=== PATIENT | female | born 1945 | race African-American/Black ===

== ENCOUNTER 2017-03-30 04:21 | Emergency (ER) | payer MEDICARE, MEDICAID ==
[~2017-03-30] VITALS: Ht 157.5 cm; Wt 106.0 kg
[~2017-03-30 04:21] MED LIST: AMLO10TA4 PO; CETI10TA6 PO; DETLA2 PO; DIAZ5TAB PO; FLONASE; GABA-290 PO; HYDR-519 PO; HYDR25TA PO; NAPR-1176 PO; OMEP20CA10 PO; VALS320T2 PO; [UNRECOGNIZED DRUG - OTHER] PO
[2017-03-30] MEDS ORDERED: KETOROLAC 60MG/2ML VIAL IM ONE (07:30)
[2017-03-30 09:50] VITALS: BP 120/75
== END 2017-03-30 09:58 | disposition home or self-care (01) ==
LOC: ER 04:21
DX: J20.9 Acute bronchitis, unspecified (principal); J02.9 Acute pharyngitis, unspecified; F32.9 Major depressive disorder, single episode, unspecified; I10 Essential (primary) hypertension; Z85.3 Personal history of malignant neoplasm of breast; Z96.659 Presence of unspecified artificial knee joint
CPT/HCPCS: 71045; 87804; 96372; 99285; J1885